=== PATIENT | male | born 1980 | race Caucasian/White ===

== ENCOUNTER 2016-11-04 19:24 | Emergency (ER) | payer BC, OTHER ==
[2016-11-04 20:18] VITALS: BP 134/82
--- NOTE | 2016-11-04 20:54 | UC ---
Skin Complaint HPI - HPI Summary HPI Summary: 36 male presents with complaints of a bee or wasp sting to right hand that occurred around 6pm today. Patient states after about an hour after it began to swell and itch. Denies redness or discharge. Took Benadryl around 7:30pm and had some relief. Mild soreness, no pain. No other stings or complaints. Denies trouble breathing, difficulty swallowing or chest tightness. No PMHx. - History of Current Complaint Chief Complaint: UCSkin Time Seen by Provider: 11/04/16 20:32 Stated Complaint: INSECT STING Hx Obtained From: Patient Onset/Duration: Sudden Onset Skin Exposure Onset/Duration: Hours Ago Timing: Constant Onset Severity: Mild Current Severity: Mild Pain Intensity: 1 Pain Scale Used: 0-10 Numeric Location: Hand (Right) Character: Swelling, Pruritus Aggravating: Nothing Alleviating: OTC Meds - benadryl Associated Signs & Symptoms: Positive: Negative Related History: Insect Bite/Sting - Allergy/Home Medications Allergies/Adverse Reactions: Allergies Allergy/AdvReac Type Severity Reaction Status Date / Time Penicillins Allergy Severe Anaphylatic Verified 11/04/16 20:13 Shock Home Medications: Home Medications diPHENhydraMINE PO* [Benadryl PO 25 MG TAB*] 50 mg PO Q6H PRN 11/04/16 [History Confirmed 11/04/16] Review of Systems Constitutional: Negative Skin: Other - swelling, pruritic, bee sting Respiratory: Negative Cardiovascular: Negative Motor: Negative Musculoskeletal: Negative All Other Systems Reviewed And Are Negative: Yes PMH/Surg Hx/FS Hx/Imm Hx - Additional Past Medical History Additional PMH: Denies DM, HTN and asthma Other History Of: Negative For: HIV, Hepatitis B, Hepatitis C - Surgical History Surgical History: Yes Surgery Procedure, Year, and Place: Tonsillectomy,B/L PE tubes - Family History Known Family History: Positive: None - Social History Alcohol Use: Occasionally Substance Use Type: None Substance Use Comment - Amount & Last Used: rare usage Smoking Status (MU): Heavy Every Day Tobacco Smoker Type: Cigarettes Amount Used/How Often: 3/4 ppd Length of Time of Smoking/Using Tobacco: 20 yrs Have You Smoked in the Last Year: Yes - Immunization History Most Recent Influenza Vaccination: none Most Recent Tetanus Shot: within past 2 years Physical Exam Triage Information Reviewed: Yes Appearance: Well-Appearing, No Pain Distress, Well-Nourished Vital Signs: Initial Vital Signs Temp 97.8 F 11/04/16 20:14 Pulse 67 11/04/16 20:14 Resp 14 11/04/16 20:14 BP 134/82 11/04/16 20:14 Pulse Ox 100 11/04/16 20:14 Vital Signs Reviewed: Yes Eyes: Positive: Conjunctiva Clear ENT: Positive: Normal ENT inspection, Hearing grossly normal, Pharynx normal, TMs normal Neck: Positive: Supple, Nontender, No Lymphadenopathy Respiratory: Positive: Chest non-tender, Lungs clear, Normal breath sounds, No respiratory distress, No accessory muscle use Cardiovascular: Positive: RRR, No Murmur, Pulses Normal Musculoskeletal: Positive: Strength Intact, ROM Intact, No Edema Neurological: Positive: Alert, Muscle Tone Normal Skin: Positive: Other - edema, pruritis of right posterior dorsal hand, without erythema or discharge, appears to be local allergic reaction to hand, no sign of stinger or FB present Course/Dx - Course Course Of Treatment: appears to be suffering from local allergic reaction to bee /wasp sting. does not appear infected or of concern at this time, no sign of FB. continue benadryl, and topical cortisone/benadryl cream. cool compresses. aware of worsening signs and symptoms to watch out for including infection. follow up pcp. - Differential Diagnoses - Skin Complaint Differential Diagnoses: Cellulitis, Local Allergic Reaction, MRSA - Diagnoses Provider Diagnoses: local allergic reaction, insect sting right hand Discharge - Discharge Plan Condition: Stable Disposition: HOME Patient Education Materials: Diphenhydramine (By mouth), Diphenhydramine (On the skin), Insect Bite or Sting (ED) Referrals: [facility] [place] [facility] [Outside] Additional Instructions: Continue taking benadryl for the next couple of days while symptoms persist. Apply benadryl or cortisone topical cream on hand, sold over the counter. Keep clean and dry. Apply triple antibiotic ointment. Apply cool compresses to help with swelling. IF symptoms worsen or do not improve such as redness/swelling/warmth, appears infected- please seek medical attention promptly as discussed. Follow up PCP.
== END 2016-11-04 20:54 | disposition home or self-care (01) ==
LOC: UCCORT 19:24
DX: T63.441A Toxic effect of venom of bees, accidental (unintentional), initial encounter (principal); M79.89 Other specified soft tissue disorders; F17.210 Nicotine dependence, cigarettes, uncomplicated; Z88.0 Allergy status to penicillin
CPT/HCPCS: 99211; G0463

== ENCOUNTER 2018-11-20 14:59 | Emergency (ER) | payer BC ==
[2018-11-20 16:17] VITALS: BP 134/82
--- NOTE | 2018-11-20 16:31 | UC ---
Respiratory Complaint HPI - HPI Summary HPI Summary: 38-year-old male who has had a mild cough with back pain over the past 5 days. He thinks she's had a fever as well. He is a smoker. He also complains of body aches and chills. He denies any urinary symptoms other than he can't remember if he has urinated today. His girlfriend presently has a bladder infection. He is able to replicate the back pain when he stretches arms above his head and he states when he steps up into his truck he can feel the back muscle pulling. - History of Current Complaint Chief Complaint: UCGeneralIllness Stated Complaint: FEVER,CHILLS,BACK PAIN Time Seen by Provider: 11/20/18 16:07 Hx Obtained From: Patient Onset/Duration: Gradual Onset Timing: Intermittent Episodes Severity Initially: Mild Severity Currently: Mild Pain Intensity: 7 Character: Cough: Productive Aggravating Factors: Nothing Alleviating Factors: Nothing Associated Signs And Symptoms: Positive: Fever, Chills, URI, Nasal Congestion - Allergies/Home Medications Allergies/Adverse Reactions: Allergies Allergy/AdvReac Type Severity Reaction Status Date / Time Penicillins Allergy Severe Anaphylatic Verified 11/20/18 16:04 Shock Home Medications: Home Medications NK [No Home Medications Reported] 11/20/18 [History Confirmed 11/20/18] PMH/Surg Hx/FS Hx/Imm Hx Previously Healthy: Yes Other History Of: Negative For: HIV, Hepatitis B, Hepatitis C - Surgical History Surgical History: Yes Surgery Procedure, Year, and Place: Tonsillectomy,B/L PE tubes - Family History Known Family History: Positive: None, Non-Contributory - Social History Alcohol Use: Occasionally Substance Use Type: Marijuana Substance Use Comment - Amount & Last Used: ONCE A MONTH Smoking Status (MU): Heavy Every Day Tobacco Smoker Type: Cigarettes Amount Used/How Often: 3/4 ppd Length of Time of Smoking/Using Tobacco: 20 yrs Have You Smoked in the Last Year: Yes Household Exposure Type: Cigarettes - Immunization History Most Recent Influenza Vaccination: none Most Recent Tetanus Shot: within past 2 years Review of Systems All Other Systems Reviewed And Are Negative: Yes Constitutional: Positive: Fever, Chills ENT: Positive: Nasal Discharge, Sinus Congestion Respiratory: Positive: Cough. Negative: Shortness Of Breath Is Patient Immunocompromised?: No Physical Exam Triage Information Reviewed: Yes Appearance: Well-Appearing, No Pain Distress, Well-Nourished Vital Signs: Initial Vital Signs Temp 97.7 F 11/20/18 16:05 Pulse 64 11/20/18 16:05 Resp 20 11/20/18 16:05 BP 134/82 11/20/18 16:05 Pulse Ox 100 11/20/18 16:05 Vital Signs Reviewed: Yes Eyes: Positive: Conjunctiva Clear ENT: Positive: Pharynx normal - Tongue is coated, Nasal congestion, TMs normal, Uvula midline Neck: Positive: Supple, Nontender, No Lymphadenopathy Respiratory: Positive: Lungs clear, Normal breath sounds, No respiratory distress, No accessory muscle use Cardiovascular: Positive: RRR, No Murmur, Pulses Normal, Brisk Capillary Refill Abdomen Description: Positive: Nontender, No Organomegaly, Soft. Negative: CVA Tenderness (R), CVA Tenderness (L), Hepatomegaly, Splenomegaly Bowel Sounds: Positive: Present Musculoskeletal Exam: Normal Neurological Exam: Normal Psychological Exam: Normal Skin Exam: Normal Respiratory Course/Dx - Course Course Of Treatment: Chest x-ray:FINDINGS: The heart is within normal limits in size. Mediastinal and hilar contours appear within normal limits. The lungs are underinflated and clear. No pleural effusion is seen. IMPRESSION: LOW LUNG VOLUMES, NO EVIDENCE FOR ACUTE FINDING. Urinalysis: Negative The patient was given Motrin 600 mg by mouth here. Although he states occasionally he will have the back pain on deep inspiration he can replicate the pain with movement, with twisting and when he steps up into his truck. He has no history of pulmonary embolus nor calf pain and no family history of the same. He is a smoker. He stated increase fluids and rest. He can apply heat to the sore area. Follow-up with his primary care provider if no improvement in 3 or 4 days. If he develops any increased pain or difficulty breathing he is to go to the emergency room. - Differential Dx/Diagnosis Provider Diagnosis: URI (upper respiratory infection), Muscle strain Discharge ED - Sign-Out/Discharge Documenting (check all that apply): Patient Departure All imaging exams completed and their final reports reviewed: Yes - Discharge Plan Condition: Good Disposition: HOME Patient Education Materials: Upper Respiratory Infection (DC) Referrals: [facility] [Outside] No Primary Care Phys,NOPCP [Primary Care Provider] - Additional Instructions: Rest, increase fluids, may continue ibuprofen every 8 hours for pain. Follow- up with your primary care provider if no improvement in 2 or 3 days. - Billing Disposition and Condition Condition: GOOD Disposition: Home
[2018-11-20] MEDS ORDERED: Ibuprofen TAB* 600 MG PO ONE (16:36)
== END 2018-11-20 16:56 | disposition home or self-care (01) ==
LOC: UCCORT 14:59
DX: J06.9 Acute upper respiratory infection, unspecified (principal); F17.210 Nicotine dependence, cigarettes, uncomplicated; S39.012A Strain of muscle, fascia and tendon of lower back, initial encounter; X58.XXXA Exposure to other specified factors, initial encounter; Y92.9 Unspecified place or not applicable; Z88.0 Allergy status to penicillin
CPT/HCPCS: 71046; 81003; 99202; A9270-GY; G0463